=== PATIENT | female | born 1995 | race Caucasian/White ===

== ENCOUNTER 2019-07-24 00:44 | Emergency (ER) | payer MEDICAID ==
[~2019-07-24] VITALS: Ht 160 cm; Wt 70.0 kg
[2019-07-24 02:14] VITALS: BP 132/80
== END 2019-07-24 02:15 | disposition home or self-care (01) ==
LOC: ER 00:44
DX: B86 Scabies (principal); F12.10 Cannabis abuse, uncomplicated
CPT/HCPCS: 99282